=== PATIENT | female | born 1995 | race Caucasian/White ===

== ENCOUNTER 2016-08-24 12:29 | Emergency (ER) | payer BC ==
[2016-08-24 13:54] VITALS: BP 120/68
--- NOTE | 2016-08-24 15:04 | UC ---
FLU HPI - HPI Summary HPI Summary: Patient presents to with CC of sweats, chills, CHENG, body aches intermittently x 7 days. Denies N/V/C/D. Denies neck pain or back pain. Denies sick contacts. Patient states to feeling fine during the day and terribly at night with all the flu symptoms. Eating and drinking OK. Denies health history, denies chance or , vaginal discharge or STD history. Denies ear pain, chest congestion, cough, eye pain or nasal congestion. - History of Current Complaint Chief Complaint: UCRespiratory Stated Complaint: SORE THROAT,ACHY Time Seen by Provider: 08/24/16 14:40 Hx Obtained From: Patient Hx Last Menstrual Period: 08/19/16 ?: No Onset/Duration: Gradual Onset Severity Currently: Moderate Severity Initially: Moderate Pain Intensity: 5 Pain Scale Used: 0-10 Numeric Associated Signs & Symptoms: Positive: Fever, F/C, Myalgia, Headache - Risk Factors Influenza Risk Factors: Negative - Allergy/Home Medications Allergies/Adverse Reactions: Allergies Allergy/AdvReac Type Severity Reaction Status Date / Time No Known Allergies Allergy Verified 08/24/16 13:54 Home Medications: Home Medications Topiramate [Topamax 50 mg tab] 50 mg PO DAILY 08/24/16 [History Confirmed ] PMH/Surg Hx/FS Hx/Imm Hx Previously Healthy: Yes - Surgical History Surgical History: Yes Surgery Procedure, Year, and Place: wisdom teeth - Family History Known Family History: Positive: None - Social History Occupation: Unemployed Lives: With Family Alcohol Use: Rare Substance Use Type: None Smoking Status (MU): Never Smoked Tobacco Review of Systems Constitutional: Fever, Chills, Fatigue Skin: Negative Eyes: Negative Respiratory: Negative Cardiovascular: Negative Motor: Negative Neurovascular: Negative Musculoskeletal: Myalgia Neurological: Headache Psychological: Negative All Other Systems Reviewed And Are Negative: Yes Physical Exam Triage Information Reviewed: Yes Appearance: Well-Appearing, Well-Nourished Vital Signs: Initial Vital Signs Temp 97.8 F 08/24/16 13:45 Pulse 55 08/24/16 13:45 Resp 18 08/24/16 13:45 BP 120/68 08/24/16 13:45 Pulse Ox 98 08/24/16 13:45 Vital Signs Reviewed: Yes Eye Exam: Normal Eyes: Positive: Conjunctiva Clear ENT: Positive: Normal ENT inspection, Hearing grossly normal, Pharynx normal Dental Exam: Normal Neck exam: Normal Neck: Positive: Supple, Nontender Respiratory Exam: Normal Respiratory: Positive: Chest non-tender, Lungs clear Cardiovascular Exam: Normal Musculoskeletal Exam: Normal Musculoskeletal: Positive: Strength Intact, ROM Intact Neurological Exam: Normal Neurological: Positive: Alert Psychological: Positive: Normal Response To Family Skin Exam: Normal Flu Course/Dx - Course Course Of Treatment: Negative flu, negative strep. Encouraged tylenol for pain and inflammation. humidifier and rest. If symptoms worsen, come back to ED. - Differential Dx/Diagnosis Differential Diagnosis/HQI/PQRI: Bronchitis, Influenza, Upper Respiratory Infection Provider Diagnoses: Sweats and Chills Discharge - Discharge Plan Condition: Stable Disposition: HOME Patient Education Materials: Acetaminophen (By mouth), Fever in Adults (ED) Referrals: Non Staff,Doctor [Primary Care Provider] - Additional Instructions: Drink plenty of fluids. A humidifier in the home can help with congestion during the colder months. If you have any questions regarding your medications , you may call the office or your pharmacist. If your symptoms fail to improve or worsen, please call your primary care provider; come back to urgent care or the emergency room. Tylenol 650mg three times daily with meals for fever, sweats and chills. Drink plenty of fluids, if you feel you cannot get enough fluids, supplement with gatorade.
== END 2016-08-24 15:28 | disposition home or self-care (01) ==
LOC: UCCORT 12:29
DX: R68.83 Chills (without fever) (principal); R61 Generalized hyperhidrosis; M79.1 Myalgia
CPT/HCPCS: 87502; 87651; 99201; G0463

== ENCOUNTER 2017-07-04 18:38 | Emergency (ER) | payer BC ==
[2017-07-04 20:39] VITALS: BP 131/75
--- NOTE | 2017-07-04 20:51 | UC ---
FLU HPI - HPI Summary HPI Summary: PT IS C/O COUGH, BODYACHES, CHILLS AND LUNGS FEELING TIGHT. SHE STATES HAD SOME WHEEZING BUT NOT NOW AND SOMETIMES FEELS SOB WITH EXERTION WITH THIS ILLNESS. SHE DENIES HX ASTHMA, N/V/D, DYSURIA. - History of Current Complaint Chief Complaint: UCGeneralIllness Stated Complaint: CHEST CONGESTION CHILLS NIGHT SWEATS Time Seen by Provider: 07/04/17 20:39 Hx Obtained From: Patient Hx Last Menstrual Period: 06/12/17 ?: No Onset/Duration: Gradual Onset - ABOUT 48 HOURS AGO Severity Currently: Moderate Severity Initially: Severe Pain Intensity: 8 Associated Signs & Symptoms: Positive: Fever, Myalgia, Cough, Headache. Negative: Sore Throat - Risk Factors Influenza Risk Factors: Negative - Allergy/Home Medications Allergies/Adverse Reactions: Allergies Allergy/AdvReac Type Severity Reaction Status Date / Time No Known Allergies Allergy Verified 07/04/17 20:39 Home Medications: Home Medications Sertraline* [Zoloft*] 50 mg PO DAILY 07/04/17 [History Confirmed 07/04/17] PMH/Surg Hx/FS Hx/Imm Hx Previously Healthy: Yes - Surgical History Surgical History: Yes Surgery Procedure, Year, and Place: wisdom teeth - Family History Known Family History: Positive: None - Social History Occupation: Student Alcohol Use: Rare Substance Use Type: None Smoking Status (MU): Never Smoked Tobacco Review of Systems Constitutional: Fever, Chills, Fatigue Skin: Negative ENT: Negative Respiratory: Shortness Of Breath, Cough Cardiovascular: Negative Gastrointestinal: Negative Genitourinary: Negative Motor: Negative Neurovascular: Negative Musculoskeletal: Myalgia Neurological: Headache Is Patient Immunocompromised?: No All Other Systems Reviewed And Are Negative: Yes Physical Exam Triage Information Reviewed: Yes Appearance: Ill-Appearing - ill but non toxic Vital Signs: Initial Vital Signs Temp 100 F 07/04/17 20:35 Pulse 92 07/04/17 20:35 Resp 16 07/04/17 20:35 BP 131/75 07/04/17 20:35 Pulse Ox 100 07/04/17 20:35 Vital Signs Reviewed: Yes Eye Exam: Normal ENT: Positive: Pharynx normal, TMs normal. Negative: Nasal drainage, Sinus tenderness Neck: Positive: Supple, Nontender, No Lymphadenopathy Respiratory: Positive: Lungs clear, No respiratory distress, Decreased breath sounds Cardiovascular: Positive: RRR, No Murmur Abdomen Description: Positive: Nontender, No Organomegaly, Soft Bowel Sounds: Positive: Present Musculoskeletal: Positive: No Edema Neurological: Positive: Alert Psychological Exam: Normal Skin Exam: Normal Diagnostics - Laboratory Diagnostic Studies Completed/Ordered: influenza + Flu Course/Dx - Course Course Of Treatment: + INFLUENZA A. NOTHING FOCAL ON LUNGS TO SUGGEST PNEUMONIA BUT IS C/W BRONCHOSPASM. WILL TX WITH TAMIFLU, ALBUTEROL . - Differential Dx/Diagnosis Provider Diagnoses: Influenza A, Bronchospasm Discharge - Discharge Plan Condition: Stable Disposition: HOME Prescriptions: Oseltamivir CAP* [Tamiflu CAP*] 75 mg PO BID 5 Days #10 cap Patient Education Materials: Influenza (ED), Bronchospasm (ED) Additional Instructions: FOLLOW UP DANA-[facility] IN 3 DAYS FOR RECHECK OR SOONER FOR CHANGES OR WORSENING
[2017-07-04] MEDS ORDERED: Oseltamivir CAP* 75 MG CAP PO ONE (21:19)
[2017-07-04] MEDS ORDERED: Albuterol HFA INHALER* 8 gm MDI INH ONE (21:25)
[2017-07-04] MEDS ORDERED: Albuterol HFA INHALER* 8 gm MDI INH SCH (22:00)
== END 2017-07-04 21:34 | disposition home or self-care (01) ==
LOC: UCCORT 18:38
DX: J09.X2 Influenza due to identified novel influenza A virus with other respiratory manifestations (principal); J98.01 Acute bronchospasm
CPT/HCPCS: 87502; 99213; A9270-GY; G0463